=== PATIENT | male | born 2000 | race Caucasian/White ===

== ENCOUNTER 2024-01-23 16:54 | Emergency (ER) | payer OTHER, SELFPAY ==
--- NOTE | ~2024-01-23 | US_ITS ---
EXAMINATION: US SCROTUM CLINICAL INFORMATION: Left testicular pain. Clinical concern for torsion. COMPARISON: None available. TECHNIQUE: A sonogram of the scrotum was performed assessing zazueta-scale appearance and color Doppler flow. Spectral Doppler analysis of the arterial and venous flow were performed in the testes bilaterally. FINDINGS: RIGHT: Right testicle measures 5.6 x 2.5 x 3.5 cm, volume 26 mL. No focal testicular parenchymal lesions are visualized. Spectral Doppler analysis of the arterial and venous flow is normal in the right testis. Right epididymal head is normal in size. There are some tiny right epididymal head cysts or spermatoceles. No right hydrocele or varicocele is seen. LEFT: Left testicle measures 5.1 x 2.7 x 3.2 cm, volume 23 mL. No focal testicular parenchymal lesions are visualized. Spectral Doppler analysis of the arterial and venous flow is normal in the left testis. Left epididymal head is enlarged by a oval 1.7 cm epididymal head cyst or spermatocele. No left hydrocele or varicocele is seen. Left epididymal Doppler flow is normal. US/US scrotum doppler IMPRESSION: No focal testicular abnormality. There is appropriately distributed symmetric color signal within each testicle. Doppler arterial and venous waveforms were obtained bilaterally. No sonographic evidence of torsion Electronically signed by: Chucky Rapp MD 01/23/2024 06:49 PM EDT
--- NOTE | ~2024-01-23 | US_ITS ---
EXAMINATION: US SCROTUM CLINICAL INFORMATION: Left testicular pain. Clinical concern for torsion. COMPARISON: None available. TECHNIQUE: A sonogram of the scrotum was performed assessing zazueta-scale appearance and color Doppler flow. Spectral Doppler analysis of the arterial and venous flow were performed in the testes bilaterally. FINDINGS: RIGHT: Right testicle measures 5.6 x 2.5 x 3.5 cm, volume 26 mL. No focal testicular parenchymal lesions are visualized. Spectral Doppler analysis of the arterial and venous flow is normal in the right testis. Right epididymal head is normal in size. There are some tiny right epididymal head cysts or spermatoceles. No right hydrocele or varicocele is seen. LEFT: Left testicle measures 5.1 x 2.7 x 3.2 cm, volume 23 mL. No focal testicular parenchymal lesions are visualized. Spectral Doppler analysis of the arterial and venous flow is normal in the left testis. Left epididymal head is enlarged by a oval 1.7 cm epididymal head cyst or spermatocele. No left hydrocele or varicocele is seen. Left epididymal Doppler flow is normal. US/US scrotum IMPRESSION: No focal testicular abnormality. There is appropriately distributed symmetric color signal within each testicle. Doppler arterial and venous waveforms were obtained bilaterally. No sonographic evidence of torsion Electronically signed by: Chucky Rapp MD 01/23/2024 06:49 PM EDT
[2024-01-23 17:07] VITALS: BP 104/80; PULSE 108; RESP 16; TEMP 36.5; O2SAT 98; BMI 25.8
--- NOTE | 2024-01-23 17:08 | ECG_ITS ---
Test Reason : TESTICULAR PAIN Blood Pressure : / mmHG Vent. Rate : 069 BPM Atrial Rate : 069 BPM P-R Int : 172 ms QRS Dur : 092 ms QT Int : 378 ms P-R-T Axes : 049 075 055 degrees QTc Int : 405 ms Normal sinus rhythm Normal ECG No previous ECGs available Referred By: Miley Duval Electronically Signed By:AMANDA BLACK
--- NOTE | 2024-01-23 17:08 | ED_ITS ---
HPI - General Adult General Chief complaint: Urogenital-Male Stated complaint: testicular pain, passed out started two hours ago Time Seen by Provider: 01/23/24 19:11 History of Present Illness ED Provider: Angella AREVALO narrative: The patient is an ordinarily healthy 23-year-old male. This morning he had a mild sense of scrotal discomfort. He pulled his underwear away to inspect his scrotum. The band of the unaware slipped and snapped against his left testicle causing severe left testicular pain. The pain went on for a couple of hours. At some point he stood up and he thinks he stood up too quickly because he passed out briefly. His mother then drove him to the emergency room. While in the emergency room his testicular pain has entirely subsided. He has no concern for sexually transmitted disease. He has not had sexual intercourse for about 2 years. He has had no dysuria. No penile discharge. Related Data Allergies Allergy/AdvReac Type Severity Reaction Status Date / Time No Known Allergies Allergy Unverified 01/23/24 17:09 Review of Systems 2 Review of Systems: Yes all other systems are reviewed and are negative [facility] Social History Social History Advance Directives: No Advance Directives Information Provided: No Physical Exam ED Vital Signs: Vital Signs - 24 hr 01/23/24 17:07 Temperature 97.7 F Pulse Rate 108 H Respiratory Rate 16 Blood Pressure 104/80 Pulse Oximetry 98 Oxygen Delivery Method Room Air BMI result Body Mass Index 25.8 Const Other: The patient is awake, alert, pleasant, cooperative. He has the appearance of an ordinarily healthy 23-year-old. He does not appear uncomfortable. [facility] Head: Yes normal to inspection Mouth: Normal oral and palatal mucosa present and moist mucous membranes Eyes Other: Pupils are round equal, conjunctivae clear, extraocular movements intact Neck Other: Moving his neck easily Resp Effort & Inspection: normal respiratory effort Other: The patient is an uncircumcised male with normal-appearing external genitalia. Cremasteric reflexes are intact bilaterally. No unusual appearance to the scrotal contents. No testicular tenderness or abnormality on palpation. Skin Other: Skin is dry and unremarkable Neuro Other: The patient is awake and alert with a normal mental status. Cranial nerves are grossly intact. He moves his extremities normally and appropriately. Extrem Other: No peripheral edema Course Course Course Narrative: This is a Rapid Medical Examination (RME) performed by Liat Duval PA-C in triage. Full HPI, ROS, assessment and treatment plan per primary provider in the Main ED. 23 yo male here for eval of acute left testicular pain x3 hours. reports pain began after accidentally striking his scrotum with the elastic waistband of his underwear. reports short episode of nausea and had syncope episode. was unconscious or if you seconds witnessed by a friend. no head strike. at presents reports intense left testicular pain worse with palpation. + area not examined in triage. Patient extremely pale appearing. Patient is standing in triage, does not want to sit due to the pain. Plan: labs, ekg, scrotal ultrasound Medical Decision Making Medical Decision Making MDM Narrative: The patient is an ordinarily healthy 23-year-old male who developed acute left testicular pain after the band of his underwear snapped against his left testicle. He had severe pain for a long time afterwards and had an orthostatic syncopal event at home. Here he has a normal ultrasound of his scrotum. CBC and BMP are unremarkable. EKG is unremarkable. His symptoms have entirely subsided. His genital exam is entirely normal. I think this is more a case of testicular pain caused by trauma rather than a possible case of torsion/detorsion. The patient will therefore be discharged. However if he has any recurrence of spontaneous testicular pain he has been instructed to return immediately to the emergency room. Lab Data 01/23/24 17:21 01/23/24 17:21 Labs: Lab Results 01/23/24 Range/Units 17:21 WBC 5.1 (4.8-10.8) X10*3/uL RBC 5.00 (4.60-5.80) X10*6/uL Hgb 14.5 (14.0-18.0) g/dl Hct 41.1 L (42.0-52.0) % MCV 82.2 (80.0-98.0) fL MCH 29.0 (27.0-33.0) pg MCHC 35.3 (31.0-36.0) g/dl RDW 12.5 (11.0-16.0) % Plt Count 202 (160-400) X10*3/uL MPV 11.0 (9.4-12.4) fL Immature Gran % (Auto) 0.2 (0.0-0.4) % Neut % (Auto) 77.2 H (45-73) % Lymph % (Auto) 16.9 L (20-40) % [place] % (Auto) 5.1 (2-11) % Eos % (Auto) 0.2 (0-4) % Baso % (Auto) 0.4 (0-2) % Lymph # (Auto) 0.9 L (1.2-4.9) X10*3/uL [place] # (Auto) 0.3 (0.1-1.2) X10*3/uL Eos # (Auto) 0.0 (0.0-0.4) X10*3/uL Baso # (Auto) 0.0 (0.0-0.2) X10*3/uL Abs Immat Gran (auto) 0.01 (0.00-0.03) X10*3/uL Absolute Neuts (auto) 4.0 (2.0-8.3) x10*3/uL Absolute Nucleated RBC 0.000 (0.0-0.012) X10*3/uL Nucleated RBC % (auto) 0.0 (0.0-0.2) /100WBC Sodium 136 (135-145) mmol/L Potassium 4.0 (3.3-5.1) mmol/L Chloride 103 (96-108) mmol/L Carbon Dioxide 24 (22-29) mmol/L Anion Gap 13 (12-20) BUN 8 L (9-16) mg/dL Creatinine 0.89 (0.5-1.4) mg/dL Estim Creat Clear Calc 136.3 Estimated GFR > 60 Random Glucose 146 H (60-115) mg/dL Calcium 10.0 (8.4-10.2) mg/dL Magnesium 1.8 (1.6-2.6) mg/dL Total Bilirubin 1.1 H (0.0-1.0) mg/dL AST 15 (5-37) U/L ALT 13 (0-40) U/L Alkaline Phosphatase 53 (39-117) U/L Total Protein 7.4 (6.5-8.0) g/dL Albumin 4.7 (3.5-5.0) g/dL Discharge Plan Discharge Clinical Impression: Left testicular pain Patient Disposition: Home, Self-Care Additional Instructions: Your testing in the emergency room is very reassuring. If at any point you wish to discuss any testicular symptoms with the appropriate doctor you may contact the urology office, Dr. Dietz's office. Otherwise I do not anticipate that you will have any ongoing problems. However if you have any episode of spontaneous significant testicular pain please return directly to the emergency room for re-evaluation. Referrals: Earl Dietz MD [Physician] - Print Language: Kazakh
[2024-01-23 17:24] LABS: MANUAL DIFF FLAG NO
[2024-01-23 17:28] LABS: Basophils Percent Auto 0.4 % (0-2); Eosinophils Percent Auto 0.2 % (0-4); Hematocrit 41.1 % (42.0-52.0); Hemoglobin 14.5 g/dl (14.0-18.0); Imm Gran Abs Auto 0.01 X10*3/uL (0.00-0.03); Imm Gran Pct Auto 0.2 % (0.0-0.4); Lymphocytes Absolute Auto 0.9 X10*3/uL (1.2-4.9); Lymphocytes Percent Auto 16.9 % (20-40); Mean Corpuscular HGB Conc 35.3 g/dl (31.0-36.0); Mean Corpuscular Volume 82.2 fL (80.0-98.0); Monocytes Absolute Auto 0.3 X10*3/uL (0.1-1.2); Monocytes Percent Auto 5.1 % (2-11); Neutrophils Percent Auto 77.2 % (45-73); Platelet Count 202 X10*3/uL (160-400); Red Cell Distribution Width 12.5 % (11.0-16.0); White Blood Count 5.1 X10*3/uL (4.8-10.8)
[2024-01-23 17:55] LABS: Alanine Aminotransferase 13 U/L (0-40); Albumin Level 4.7 g/dL (3.5-5.0); Alkaline Phosphatase 53 U/L (39-117); Anion Gap 13 (12-20); Aspartate Amino Transferase 15 U/L (5-37); Bilirubin Total 1.1 mg/dL (0.0-1.0); Blood Urea Nitrogen 8 mg/dL (9-16); Carbon Dioxide 24 mmol/L (22-29); Chloride 103 mmol/L (96-108); Creatinine Clr Calc Pharmacy 136.3; Estimated Glomerular Filt Rate > 60; Glucose Random 146 mg/dL (60-115); Magnesium 1.8 mg/dL (1.6-2.6); Sodium 136 mmol/L (135-145); Total Protein 7.4 g/dL (6.5-8.0)
[2024-01-23 19:35] VITALS: BP 123/74; PULSE 77; RESP 16; TEMP 36.5; O2SAT 100
== END 2024-01-23 19:35 | disposition home or self-care (01) ==
PROVIDERS: Physician Assistant Medical; Emergency Provider Emergency Medicine
DX: N50.812 Left testicular pain (principal); N50.82 Scrotal pain; R10.2 Pelvic and perineal pain; Z79.899 Other long term (current) drug therapy
CPT/HCPCS: 36415; 76870; 80053; 83735; 85025; 93005; 93975; 99284